=== PATIENT | male | born 1955 | race Caucasian/White ===

== ENCOUNTER → 2016-12-20 | Day surgery (SDC) | payer OTHER ==
[~2016-12-20] MED LIST: BUPIVACAINE/EPINEPHRINE 0.5% 50 ML VIAL ONE; CARD360C PO; CYCL1TAB29 PO; FLUT1INH INH; HALOPERIDOL LACTATE 5 MG/ML AMP IV ONE; HYDR-3516 PO; KETOROLAC TROMETHAMINE 30 MG/ML (IVP) VIAL IV PUSH ONE; LACTATED RINGER'S 1,000 ML BAG IV ONE; LACTATED RINGER'S 1000 ML INJ 1,000 ML ONE; LISI10TA3 PO; MIDAZOLAM HCL 2 MG/2 ML VIAL ONE; NEOMYCIN/POLYMYXIN/BACITRACIN OINT 15 GM TUBE ONE; PROPOFOL 200 MG/20 ML AMP IV ONE; SODIUM CHLOR 0.9% 250 ML BAG IV ONE; TIOT1AER2 INH; VANCOMYCIN 500 MG VIAL ONE; VANCOMYCIN HCL 1000 MG VIAL ONE; VENTAER INH; eye gtts
--- NOTE | 2016-12-20 11:47 | TN ---
cc: LESLY HOWARD M.D. DATE OF SURGERY: 12/20/2016 PREOPERATIVE DIAGNOSIS 1. Symptomatic recurrent right inguinal hernia. 2. Umbilical hernia. POSTOPERATIVE DIAGNOSIS 1. Symptomatic recurrent right inguinal hernia. 2. Umbilical hernia. 3. Indirect and direct recurrence right inguinal hernia. 4. Large cord lipoma. 5. Umbilical hernia. PROCEDURE PERFORMED 1. Laparoscopic right inguinal hernia repair with mesh. 2. Open umbilical hernia repair with mesh. SURGEON Lesly Howard MD ANESTHESIA General LMA COMPLICATIONS None. INDICATION FOR PROCEDURE Mr. Arthur is a pleasant 61-year-old gentleman who has symptomatic bulge in his right groin. On physical exam he is found to have an obvious hernia. He reports having bilateral inguinal hernia repair as a child. This was therefore a recurrence. He also had a moderate sized umbilical hernia. He was offered laparoscopic repair since it was recurrent hernia and he also had umbilical hernia. He was agreeable to proceed. DETAILS OF PROCEDURE The patient was identified, brought to the operating room and placed supine on the operating table. After adequate general anesthesia had been achieved with LMA, the anterior abdomen and groin was prepped and draped in standard surgical fashion. Infraumbilical space was anesthetized with 0.25% Marcaine. Infraumbilical incision was made. Dissection was carried down to subcutaneous tissue to the anterior rectus fascia. The anterior rectus fascia was then incised vertically off the midline. Rectus muscle was retracted laterally and preperitoneal space was entered with blunt dissection. Blunt dissecting balloon was inserted and the preperitoneal space insufflated with 30 pumps of air under direct vision. Balloon dissector was removed and balloon trocar inserted. Preperitoneal space was insufflated to 11 mmHg using CO2 gas. Next, two 5 mm trocars were placed in the lower midline under direct vision after anesthetizing the skin and subcutaneous tissue with 0.25% Marcaine. Attention was directed to the pubic tubercle which was easily identified. Dissection proceeded out laterally, first identifying a direct recurrent hernia. The preperitoneal fat was dissected out of the hernia sac and the hernia defect was photographed. Dissection then proceeded out laterally identifying the cord structures. Traveling with the cord structures was of fairly large cord lipoma and a peritoneal indirect hernia sac. Both the cord lipoma and the hernia sac were carefully dissected off the cord structures and away from the internal ring. Once these were back several centimeters, a posterior window was then made behind the cord structures. A piece of polypropylene mesh was inserted with a slit cut for the cord structures. It was placed through the posterior window. The slit was then reapproximated tightening the internal ring with the pro-tack. Next, the mesh was secured medially at Yohannes's ligament and pubic tubercle and superior along the posterior abdominal wall fascia. An onlay mesh was then placed over the first mesh in order to cover the slit. This mesh was secured medially and laterally. With this the indirect and direct defects were well covered by mesh with generous mesh overlap over the fascial defect. 0.25% Marcaine was injected in the operative field. Inferior border of the mesh was then held down and the preperitoneal space was desufflated and the peritoneum and fat was seen to roll up over the mesh, again with excellent coverage of the indirect and direct defects. All trocars were removed under direct vision. The anterior rectus fascia was repaired with 0 Vicryl in a [id number] fashion. Attention was now directed to the umbilical hernia. The umbilical stalk was carefully dissected circumferentially. Umbilical stalk was then transected off of the hernia sac. Hernia sac was opened ___. This reduced back in the abdominal cavity. The abdominal fascia was then cleaned off circumferentially. Attention was now directed to repair. Repair was accomplished using a two-layer technique. First the fascia was reapproximated primarily using a 0-Prolene suture interrupted x3. Once this was accomplished a onlay mesh was then placed and it was secured in the four corners using a 2-0 Prolene. It was also secured on the superior and inferior border. With this the defect was completely covered in two layers with generous mesh overlap over the fascia. Wound was copiously irrigated with normal saline solution. Wound was injected with additional local anesthetic. Umbilical stalk was then tacked down to the abdominal wall using a 4-0 Vicryl. Subcutaneous tissue was closed with 4-0 Vicryl and skin was closed with 4-0 Vicryl subcuticular. The 5 mm port sites were also closed with 4-0 Vicryl. Sterile dressings were applied and the patient was awakened and brought to recovery in stable condition. Lesly White, MD MW/PHOEBE /11:11 AM 11:29 AM
== END | disposition home or self-care (01) ==
LOC: ESDC 07:23
PROVIDERS: ATTEND Surgery Trauma Surgery
DX: K40.91 Unilateral inguinal hernia, without obstruction or gangrene, recurrent (principal); K42.9 Umbilical hernia without obstruction or gangrene; D17.6 Benign lipomatous neoplasm of spermatic cord
CPT/HCPCS: 00750; 00840; 49585; 49651; C1727; C1781; J1630; J1885; J2250; J3010; J3370; J7050; J7120